=== PATIENT | female | born 1960 | race African-American/Black ===

== ENCOUNTER 2021-07-01 12:29 | Emergency (ER) | payer OTHER ==
[~2021-07-01 12:29] MED LIST: DUONEB 2.5-0.5M1 AMP NEB; LEVAQUIN500 MG PO; NORVASC5 MG PO; PREDNISONE 20MG20 MG PO; PRINIVIL10 MG PO; PRINIVIL20 MG PO; SYMBICORT 80-10.2 GM INH
[2021-07-01 14:30] LABS: BASOPHIL 0 % (0-2); EOSINOPHIL 0 % (0-5); HCT 38.6 % (37.0-47.0); HGB 12.5 g/dl (12.5-16.0); LYMPHOCYTE 11.5 % (15-48); MCH 27.5 pg (25.0-31.0); MCHC 32.4 g/dL (32.0-36.0); MONOCYTE 4.3 % (0-12); MPV 10.3 fL (6.0-9.5); NEUTROPHIL 83.7 % (41-80); NRBC 0; PLT 166 K/uL (150-400); RBC 4.54 M/uL (4.20-5.40); RDW 13.4 % (11.5-14.0); WBC 6.4 K/uL (4.0-10.5)
[2021-07-01 14:47] LABS: ALBUMIN 2.8 g/dL (3.4-5.0); BILIRUBIN - TOTAL 0.6 mg/dL (0.2-1.0); BUN/CREAT RATIO (CALC) 15.9 RATIO; CREATININE 1.32 mg/dL (0.51-0.95); GLOBULIN (CALCULATION) 4.7 g/dL; TOTAL PROTEIN 7.5 g/dL (6.4-8.2)
[2021-07-01] MEDS ORDERED: ONDANSETRON ODT4 MG PO (17:58)
== END 2021-07-01 18:40 | disposition home or self-care (01) ==
LOC: FER 12:29
PROVIDERS: Physician Assistant
DX: U07.1 COVID-19 (principal); N17.9 Acute kidney failure, unspecified; E87.6 Hypokalemia; I10 Essential (primary) hypertension; J45.909 Unspecified asthma, uncomplicated; Z91.018 Allergy to other foods
CPT/HCPCS: 36415; 71045; 80053; 85025; J2405; J2930; J7030